=== PATIENT | female | born 1960 | race Caucasian/White ===

== ENCOUNTER → 2019-07-22 | Outpatient (CLI) | payer BC | END | disposition home or self-care (01) | LOC: PREOP 05:58 | PROVIDERS: ATTEND Pediatrics | DX: Z01.818 Encounter for other preprocedural examination (principal) ==

== ENCOUNTER 2019-07-25 06:51 | Day surgery (SDC) | payer BC ==
[2019-07-25] VITALS (11 sets, daily range): BP systolic 102–137; BP diastolic 60–77
[~2019-07-25] VITALS: Ht 157.5 cm; Wt 65.8 kg
[2019-07-25] MEDS ORDERED: NS IV 500 ML 500 ML ONE (07:00)
[2019-07-25] MEDS ORDERED: NS IV 500 ML 500 ML IV PRN (07:39)
[2019-07-25] MEDS ORDERED: fentaNYL INJECTION 100 MCG/2 ML AMP IVP ONE (07:45)
[2019-07-25] MEDS ORDERED: MIDAZOLAM 2 MG/2 ML (VERSED) VIAL IVP ONE (07:45)
[2019-07-25] MEDS ORDERED: fentaNYL INJECTION 100 MCG/2 ML AMP ONE (07:47)
[2019-07-25] MEDS ORDERED: MIDAZOLAM 2 MG/2 ML (VERSED) VIAL ONE ×3 (07:47)
[2019-07-25] MEDS ORDERED: VNL75T PO (07:48)
[2019-07-25] MEDS ORDERED: SIMV20TA3 PO (07:48)
[2019-07-25] MEDS ORDERED: TRIA1CAP PO (07:48)
[2019-07-25] MEDS ORDERED: MULT-974 PO (07:49)
--- NOTE | 2019-07-25 08:08 | Progress Note-Pre Operative ---
Pre-Operative Progress Note H&P Reviewed The H&P was reviewed, patient examined and no changes noted. Date Seen by Provider: Jul 25, 2019 Time Seen by Provider: 08:08 Date H&P Reviewed: Jul 25, 2019 Time H&P Reviewed: 08:08 Pre-Operative Diagnosis: JULIAN Villa MD Jul 25, 2019 08:08
--- NOTE | 2019-07-25 08:29 | Endoscopy Procedure Report ---
Colonoscopy Procedure Performed: Colonoscopy Pre-Operative Diagnosis: screening Post-Operative Diagnosis: same Technical Training Instructor: None. Indications for Procedure: screening Procedure Details: Informed consent was obtained, the risks, benefits and alternatives to the procedure were explained to the patient. The Viry Roger, a 59 yr old female, was brought to to surgery area, sedated with 6 mg of Versed and 100 ug of fentanyl. She was placed in the left lateral decubitus position. Under direct visualization the scope was passed easily to the cecum. Cecum is identified by landmarks. Scope was carefully withdrawn. Findings: Ascending Colon: poorly visulaized Transverse Colon: none Descending/Sigmoid: none Rectum: none Estimated Blood Loss: 0mL Specimens: none Complications: None; patient tolerated the procedure well. Final Diagnosis: colon seen to hepatic flexure and unable to advance colonoscope further due to very poor bowel prep and copious amounts retained stool 75 % of colonic surface seen without any distinct polyps or masses JULIAN RICH MD Jul 25, 2019 08:29
== END 2019-07-25 09:20 | disposition home or self-care (01) ==
LOC: ENDO 06:51
PROVIDERS: ATTEND Pediatrics
DX: Z12.11 Encounter for screening for malignant neoplasm of colon (principal); E78.5 Hyperlipidemia, unspecified; H81.09 Meniere's disease, unspecified ear; F32.9 Major depressive disorder, single episode, unspecified; Z87.891 Personal history of nicotine dependence

== ENCOUNTER 2021-08-21 22:27 | Emergency (ER) | payer BC ==
[~2021-08-21] VITALS: Ht 157.4 cm; Wt 68.0 kg
[~2021-08-21 22:27] MED LIST: MULT-974 PO; SIMV20TA26 PO; TRIA1CAP PO; VNL75T PO
--- NOTE | 2021-08-21 22:41 | ED General ---
General Stated Complaint: POSS STROKE History of Present Illness Date Seen by Provider: Aug 21, 2021 Time Seen by Provider: 10:30 Initial Comments 61-year-old female presents via EMS. Called due to syncopal episode at home in the bathroom. History given that patient was feeling sick and having upper respiratory symptoms today and she took one of her husbands Keflex tablets and shortly after began having allergic reaction and passed out in the restroom. On EMS arrival, patient was awake and alert with low blood pressure. IV started, given Zofran as well as Benadryl and initial assessment was for an allergic reaction and she had a rash presumed due to taking her 's Abx. Somewhat improved on arrival to ER. Pt c/o feeling cold and having stomach cramping with nausea. Allergies and Home Medications Allergies Coded Allergies: cephalexin (Verified Allergy, Severe, Hives, 08/21/21) Patient Home Medication List Home Medication List Reviewed: Yes Famotidine (Pepcid) 20 Mg Tablet, 20 MG PO BID Prescribed by: SHERMAN KIMBLE on 08/22/2144 Multivitamin (Multi-Vitamin Daily) 1 Each Tablet, 1 EACH PO DAILY, (Reported) Entered as Reported by: CAPO CHARLES on 07/25/19748 Ondansetron (Ondansetron Odt) 4 Mg Tab.rapdis, 4 MG PO TID Prescribed by: SHERMAN KIMBLE on 08/22/2144 Potassium Chloride (Potassium Chloride) 20 Meq Tab.er.prt, 20 MEQ PO DAILY Prescribed by: SHERMAN KIMBLE on 08/22/2144 Prednisone (Prednisone) 50 Mg Tab, 50 MG PO DAILY Prescribed by: SHERMAN KIMBLE on 08/22/2144 Simvastatin (Simvastatin) 20 Mg Tablet, 20 MG PO DAILY, (Reported) Entered as Reported by: CAPO CHARLES on 07/25/19747 Triamterene/Hydrochlorothiazid (Dyazide 37.5-25 Capsule) 1 Each Capsule, 1 EACH PO DAILY, (Reported) Entered as Reported by: CAPO CHARLES on 07/25/19747 Venlafaxine HCl (Venlafaxine HCl) 75 Mg Tab, 75 MG PO DAILY, (Reported) Entered as Reported by: CAPO CHARLES on 9/12/19 0748 Review of Systems Review of Systems Constitutional: chills, dizziness, malaise, weakness EENTM: nose congestion; No hoarseness, No mouth pain, No mouth swelling, No throat pain, No throat swelling Cardiovascular: see HPI; No chest pain, No edema, No palpitations; syncope (assumed she passed out in bathroom, heard her fall) Gastrointestinal: abdominal pain (cramping); No diarrhea; nausea; No vomiting Musculoskeletal: No back pain, No joint pain Skin: change in color (redness to torso), rash Past Eilvrpd-Tkehcp-Kqkzdn Hx Patient Social History Tobacco Use?: No Seasonal Allergies Seasonal Allergies: Yes (hay fever; cotton wood) Past Medical History Surgeries: No Respiratory: No Cardiac: No Neurological: No Genitourinary: No Gastrointestinal: No Musculoskeletal: No Endocrine: No HEENT: No Cancer: No Psychosocial: No Anxiety, Depression Integumentary: No Blood Disorders: No Adverse Reaction/Blood Tranf: No Physical Exam Vital Signs Vital Signs - First Documented 08/21/21 22:28 Temp 36.6 Pulse 74 Resp 26 B/P (MAP) 125/52 (76) Pulse Ox 92 O2 Delivery Room Air Capillary Refill : Height, Weight, BMI Height: 5'2.00" Weight: 145lbs. 0.0oz. 65.646856rr; 26.5 BMI Method: General Appearance: WD/WN, Other (pale face and rash of torso) Eyes: Bilateral Eye PERRL, Bilateral Eye EOMI HEENT: PERRL/EOMI, Normal ENT Inspection (but w dry MM) Neck: Non Tender, Supple Respiratory: Chest Non Tender, Lungs Clear, Normal Breath Sounds, No Accessory Muscle Use, No Respiratory Distress Cardiovascular: Regular Rate, Rhythm, No Edema, No JVD Gastrointestinal: Normal Bowel Sounds, Non Tender, Soft Back: Normal Inspection, No CVA Tenderness Extremity: Normal Capillary Refill, Non Tender Neurologic/Psychiatric: Alert, Oriented x3, No Motor/Sensory Deficits Skin: Other (torso w large erythematous patches- confluent. Non-vessicular, NOn-papular) Focused Exam Lactate Level 08/21/21 22:38: Lactic Acid Level 4.90*H 08/22/21 00:07: Lactic Acid Level 2.68*H Lactic Acid Level Laboratory Tests Test 08/21/21 22:38 08/22/21 00:07 Lactic Acid Level 4.90 MMOL/L (0.50-2.00) *H 2.68 MMOL/L (0.50-2.00) *H Progress/Results/Core Measures Suspected Sepsis SIRS Temperature: Pulse: Respiratory Rate: Laboratory Tests 08/21/21 22:38: White Blood Count 7.4 Blood Pressure / Mean: 08/21/21 22:38: Lactic Acid Level 4.90*H 08/22/21 00:07: Lactic Acid Level 2.68*H Laboratory Tests 08/21/21 22:38: Creatinine 0.87, Platelet Count 241, Total Bilirubin 0.2 Results/Orders Lab Results Laboratory Tests Test 08/21/21 22:38 08/22/21 00:07 Range/Units White Blood Count 7.4 4.3-11.0 10^3/uL Red Blood Count 4.36 3.80-5.11 10^6/uL Hemoglobin 13.6 11.5-16.0 g/dL Hematocrit 41 35-52 % Mean Corpuscular Volume 93 80-99 fL Mean Corpuscular Hemoglobin 31 25-34 pg Mean Corpuscular Hemoglobin Concent 33 32-36 g/dL Red Cell Distribution Width 13.2 10.0-14.5 % Platelet Count 241 130-400 10^3/uL Mean Platelet Volume 10.0 9.0-12.2 fL Immature Granulocyte % (Auto) 1 % Neutrophils (%) (Auto) 39 L 42-75 % Lymphocytes (%) (Auto) 58 H 12-44 % Monocytes (%) (Auto) 2 0-12 % Eosinophils (%) (Auto) 0 0-10 % Basophils (%) (Auto) 0 0-10 % Neutrophils # (Auto) 2.9 1.8-7.8 X 10^3 Lymphocytes # (Auto) 4.3 H 1.0-4.0 X 10^3 Monocytes # (Auto) 0.1 0.0-1.0 X 10^3 Eosinophils # (Auto) 0.0 0.0-0.3 10^3/uL Basophils # (Auto) 0.0 0.0-0.1 10^3/uL Immature Granulocyte # (Auto) 0.1 0.0-0.1 10^3/uL Sodium Level 141 135-145 MMOL/L Potassium Level 2.9 L 3.6-5.0 MMOL/L Chloride Level 103 98-107 MMOL/L Carbon Dioxide Level 20 L 21-32 MMOL/L Anion Gap 18 H 5-14 MMOL/L Blood Urea Nitrogen 15 7-18 MG/DL Creatinine 0.87 0.60-1.30 MG/DL Estimat Glomerular Filtration Rate 66 BUN/Creatinine Ratio 17 Glucose Level 183 H 70-105 MG/DL Lactic Acid Level 4.90 *H 2.68 *H 0.50-2.00 MMOL/L Calcium Level 8.4 L 8.5-10.1 MG/DL Corrected Calcium 9.0 8.5-10.1 MG/DL Total Bilirubin 0.2 0.1-1.0 MG/DL Aspartate Amino Transf (AST/SGOT) 17 5-34 U/L Alanine Aminotransferase (ALT/SGPT) 8 0-55 U/L Alkaline Phosphatase 59 40-136 U/L Troponin I < 0.30 <0.30 NG/ML Total Protein 5.7 L 6.4-8.2 GM/DL Albumin 3.3 3.2-4.5 GM/DL My Orders Orders - ROVENSTINE,SHERMAN L DO Ed Iv/Invasive Line Start (08/21/21 22:36) Cbc With Automated Diff (08/21/21 22:36) Comprehensive Metabolic Panel (08/21/21 22:36) Lactic Acid Analyzer (08/21/21 22:36) Troponin I Fs (08/21/21 22:36) Chest 1 View Ap/Pa Only (08/21/21 22:36) Ekg Tracing (08/21/21 22:36) Ns Iv 1000 Ml (Sodium Chloride 0.9%) (08/21/21 22:45) Ondansetron Injection (Zofran Injectio (08/21/21 22:45) Famotidine Injection (Pepcid Injection) (08/21/21 22:45) Methylprednisolone Sod Succ (Solu-Medrol (08/21/21 22:45) Potassium Cl 10meq/50ml Ivpb (Kcl 10 Meq (08/21/21 23:30) Prochlorperazine Injection (Compazine In (08/21/21 23:36) Lactic Acid Analyzer (08/22/21 00:00) Ns Iv 1000 Ml (Sodium Chloride 0.9%) (08/21/21 23:30) Potassium Cl 10meq/50ml Ivpb (Kcl 10 Meq (08/21/21 23:29) Prochlorperazine Injection (Compazine In (08/21/21 23:45) Medications Given in ED Vital Signs/I&O 08/21/21 08/22/21 22:28 00:44 Temp 36.6 Pulse 74 72 Resp 26 21 B/P (MAP) 125/52 (76) 98/49 Pulse Ox 92 94 O2 Delivery Room Air Room Air Capillary Refill : Progress Note : Time: 23:29 Progress Note Patient feeling better after 2 L of IV fluids and medications given. Vital signs are stable, no distress, erythema of her torso has lightened significantly and has had improved color to her face. present in the room and further history given and discussed with patient and her . Patient states that she took the antibiotic (Keflex) at approximately 9 PM and began to fill like her hands were itchy and nauseated about 10 PM. She went to the bathroom because she thought she was going to throw up and was feeling hot and sweaty with the rash and itchy hands. Her heard her pass out in the bathroom and they called 911 ECG Initial ECG Impression Date: Aug 21, 2021 Initial ECG Impression Time: 22:32 Initial ECG Rate: 76 Initial ECG Rhythm: Normal Sinus Initial ECG Intervals: Normal Initial ECG Impression: Normal Initial ECG Comparisson: No Previous ECG Available Departure Impression Primary Impression: Allergic reaction caused by a drug Qualified Codes: T78.40XA - Allergy, unspecified, initial encounter Additional Impressions: Vasovagal reaction Hypokalemia Disposition: 01 HOME, SELF-CARE Condition: Improved Departure-Patient Inst. Decision time for Depature: 00:41 Referrals: JULIAN NG MD (PCP/Family) Primary Care Physician Patient Instructions: Adverse Drug Reactions, Adult ED, Hypokalemia (DC), Vasovagal Response (DC) Add. Discharge Instructions: Call Dr Ng to notify him of your allergic reaction to Keflec (Cephalexin) that occurred tonight. Also let him know your potassium level was 2.9 and we are giving you a supplement for a week. Follow up in the ER for any worsening symptoms Scripts Ondansetron (Ondansetron Odt) 4 Mg Tab.rapdis 4 MG PO TID for Nausea, #10 TAB Prov: SHERMAN KIMBLE DO 08/22/21 Potassium Chloride (Potassium Chloride) 20 Meq Tab.er.prt 20 MEQ PO DAILY, #7 TAB Prov: SHERMAN KIMBLE DO 08/22/21 Famotidine (Pepcid) 20 Mg Tablet 20 MG PO BID, #10 TAB Prov: SHERMAN KIMBLE DO 08/22/21 Prednisone (Prednisone) 50 Mg Tab 50 MG PO DAILY, #5 TAB Prov: SHERMAN KIMBLE DO 08/22/21 SHERMAN KIMBLE DO Aug 21, 2021 22:41
[2021-08-21 22:45] LABS: HEMATOCRIT 41 % (35-52); HEMOGLOBIN 13.6 g/dL (11.5-16.0); MEAN CORPUSCULAR HEMOGLOBIN 31 pg (25-34); MEAN CORPUSCULAR HGB CONC 33 g/dL (32-36); MEAN CORPUSCULAR VOLUME 93 fL (80-99); WHITE BLOOD COUNT 7.4 10^3/uL (4.3-11.0)
[2021-08-21] MEDS ORDERED: ONDANSETRON 4 MG/2 ML (SDV) Z0FRAN IVP ONE (22:45)
[2021-08-21] MEDS ORDERED: NS IV 1000 ML 1,000 ML IV SCH ×2 (22:45→23:30)
[2021-08-21] MEDS ORDERED: methylPREDNISolone 125 MG (Solu-MEDROL) VIAL IVP ONE (22:45)
[2021-08-21] MEDS ORDERED: FAMOTIDINE 20MG/2ML IV (PEPCID) IVP ONE (22:45)
[2021-08-21 22:46] LABS: BASOPHILS % (AUTO) 0 % (0-10); EOSINOPHILS % (AUTO) 0 % (0-10); LYMPHOCYTES # (AUTO) 4.3 X 10^3 (1.0-4.0); LYMPHOCYTES % (AUTO) 58 % (12-44); MONOCYTES # (AUTO) 0.1 X 10^3 (0.0-1.0); MONOCYTES % (AUTO) 2 % (0-12); NEUTROPHILS # (AUTO) 2.9 X 10^3 (1.8-7.8); NEUTROPHILS % (AUTO) 39 % (42-75); PLATELET COUNT 241 10^3/uL (130-400)
--- NOTE | 2021-08-21 23:02 | Diagnostic Imaging Report ---
EXAMINATION: Chest radiograph, portable AP view. DATE: 08/21/2021 10:56 PM INDICATION: 61-year-old female, syncope. COMPARISON: None. FINDINGS: Heart size and mediastinal contours are unremarkable. There is no identified pneumothorax. There is no large pleural effusion. There is no identified focal airspace consolidation. IMPRESSION: No identified acute cardiopulmonary abnormality. Dictated by: Dictated on workstation # [id number]
[2021-08-21 23:06] LABS: ALANINE AMINOTRANSFERASE 8 U/L (0-55); ALBUMIN 3.3 GM/DL (3.2-4.5); ALKALINE PHOSPHATASE 59 U/L (40-136); BILIRUBIN,TOTAL 0.2 MG/DL (0.1-1.0); BUN/CREATININE RATIO 17; CALCIUM 8.4 MG/DL (8.5-10.1); CARBON DIOXIDE 20 MMOL/L (21-32); CHLORIDE 103 MMOL/L (98-107); CREATININE SERUM 0.87 MG/DL (0.60-1.30); GFR ESTIMATED 66; GLUCOSE 183 MG/DL (70-105); POTASSIUM 2.9 MMOL/L (3.6-5.0); SODIUM 141 MMOL/L (135-145); TOTAL PROTEIN 5.7 GM/DL (6.4-8.2)
[2021-08-21] MEDS ORDERED: POTASSIUM CL 10MEQ/50ML IVPB 50 ML IV ONE ×2 (23:29→23:30)
[2021-08-21] MEDS ORDERED: PROCHLORPERAZINE 10 MG/2ML INJ (COMPAZINE) ONE ×2 (23:29→23:36)
[2021-08-21] MEDS ORDERED: PROCHLORPERAZINE 10 MG/2ML INJ (COMPAZINE) IM ONE (23:30)
[2021-08-21] MEDS ORDERED: PROCHLORPERAZINE 10 MG/2ML INJ (COMPAZINE) IV ONE (23:45)
[2021-08-22 00:44] VITALS: BP 98/49
[2021-08-22] MEDS ORDERED: PRD50T PO (00:45)
[2021-08-22] MEDS ORDERED: POTA20TA15 PO (00:45)
[2021-08-22] MEDS ORDERED: ONDA4TAB11 PO (00:45)
[2021-08-22] MEDS ORDERED: FAMO-119 PO (00:45)
== END 2021-08-22 00:52 | disposition home or self-care (01) ==
LOC: EDUNIT# 22:27 → ER FS 22:30
DX: R55 Syncope and collapse (principal); T36.1X5A Adverse effect of cephalosporins and other beta-lactam antibiotics, initial encounter; E87.6 Hypokalemia; F41.9 Anxiety disorder, unspecified; F32.9 Major depressive disorder, single episode, unspecified; Z79.899 Other long term (current) drug therapy
CPT/HCPCS: 36415; 71045; 80053; 83605; 84484; 85025; 93005; 96361; 96374; 96375

== ENCOUNTER → 2022-09-19 | Outpatient (CLI) | payer BC ==
[~2022-09-19] MED LIST changes: +FAMO-119 PO; +GADOTERATE 0.5 MMOL/ML (CLARISCAN) 15 ML VIAL IV ONE; +ONDA4TAB11 PO; +POTA-179 PO; +PRD50T PO
--- NOTE | 2022-09-19 12:27 | Diagnostic Imaging Report ---
PROCEDURE: MR imaging of the brain with and without contrast. TECHNIQUE: Multiplanar, multisequence MR imaging of the brain was performed with and without contrast. INDICATION: Right sensorineural hearing loss. COMPARISON: None. FINDINGS: [id number]-kthpoahr nonspecific T2 hyperintensities in the supratentorial white matter compatible with chronic small vessel ischemic change. No abnormal intracranial enhancement. Mild generalized parenchymal volume loss. No restricted water diffusion. No hemosiderin deposition or evidence of intracranial hemorrhage. Normal morphology including the major midline structures, sella, posterior fossa. Dedicated sequences to the level of the cerebellar pontine angle demonstrates normal morphology with no suspicious mass. No hydrocephalus or extra-axial fluid collections. Normal intracranial flow voids. The orbits are unremarkable. Paranasal sinuses and mastoids are clear. Normal bone marrow signal. IMPRESSION: 1. No acute intracranial MRI findings. No evidence of acute infarction or hemorrhage. 2. Normal morphology of the cerebellar pontine angles with no evidence of an internal auditory canal mass or abnormal enhancement. 3. Rwwm-bi-rasabzmx chronic small vessel ischemic change. Dictated by: Dictated on workstation # [id number]
== END ==
LOC: RAD 09:01
PROVIDERS: ATTEND Otolaryngology Otolaryngology/Facial Plastic Surgery
DX: I67.82 Cerebral ischemia (principal); H90.41 Sensorineural hearing loss, unilateral, right ear, with unrestricted hearing on the contralateral side
CPT/HCPCS: 70553